=== PATIENT | male | born 1945 | race Two or more races ===

== ENCOUNTER 2025-08-25 17:51 | Inpatient (IN) | payer MEDICARE, OTHER ==
[~2025-08-25] VITALS: Ht 175.3 cm; Wt 88.5 kg
[2025-08-25 18:30] VITALS: BP 101/61; TEMP 99.3; O2SAT 100
[2025-08-25] MEDS ORDERED: MAGNESIUM HYDROXIDE 30 ML UDC PO PRN (19:00)
[2025-08-25] MEDS ORDERED: ONDANSETRON HCL/PF 4 MG/2 ML VIAL IVP PRN (19:00)
[2025-08-25] MEDS ORDERED: ZOLPIDEM TARTRATE 5 MG TABLET PO PRN (19:00)
[2025-08-25] MEDS ORDERED: Z GUARD REMEDY 4 OZ OINT TP PRN (19:00)
[2025-08-25] MEDS ORDERED: MAG HYDROX/AL HYDROX/SIMETH 30 ML UDC PO PRN (19:00)
[2025-08-25 19:11] LABS: PLATELET COUNT (AUTO) 263 K/uL (150-450); RED BLOOD CELL COUNT(AUTO) 2.40 MIL/uL (4.5-6.0); RED CELL DISTRIBUTION WIDTH 15.0 % (11.5-15.0); WHITE BLOOD COUNT (AUTO) 9.0 K/uL (4.3-11.0)
[2025-08-25 19:32] LABS: ASPARTATE AMINOTRANSFERASE 17 U/L (15-37); CALCIUM, SERUM 7.5 mg/dL (8.5-10.1); CREATININE 1.2 mg/dL (0.6-1.3); SODIUM SERUM 142 mmol/L (136-145); TOTAL PROTEIN, SERUM 5.6 g/dL (6.4-8.2); UREA NITROGEN, BLOOD 15 mg/dL (7-18)
[2025-08-25 19:35] LABS: LACTIC ACID 2.6 mmol/L (0.4-2.0)
[2025-08-25] MEDS: IV 1/2NS 1000 ML 1,000 ML IV PRN (22:23)
[2025-08-25 23:11] LABS: LACTIC ACID REFLEX 2.0 mmol/L (0.4-1.9)
[2025-08-26] VITALS (13 sets, daily range): BP systolic 59–130; BP diastolic 52–81; TEMP 98–98.9; O2SAT 99–100
[2025-08-26] MEDS: ACETAMINOPHEN 325 MG TABLET PO PRN (00:35)
[2025-08-26 07:19] LABS: PLATELET COUNT (AUTO) 238 K/uL (150-450); RED BLOOD CELL COUNT(AUTO) 2.08 MIL/uL (4.5-6.0); RED CELL DISTRIBUTION WIDTH 15.2 % (11.5-15.0); WHITE BLOOD COUNT (AUTO) 8.4 K/uL (4.3-11.0)
[2025-08-26 07:25] LABS: CALCIUM, SERUM 6.7 mg/dL (8.5-10.1); CREATININE 1.1 mg/dL (0.6-1.3); PHOSPHORUS 2.2 mg/dL (2.5-4.9); SODIUM SERUM 145.0 mmol/L (136-145); UREA NITROGEN, BLOOD 13.0 mg/dL (7-18)
[2025-08-26] MEDS: POTASSIUM CHLORIDE 20 MEQ TAB.PRT.SR PO SCH (08:29)
[2025-08-26] MEDS: NEUTRA PHOS 1 POWD.PACKET PO SCH (08:29)
[2025-08-26 08:41] LABS: IRON, SERUM 28 ug/dl (50-175)
[2025-08-26 08:50] LABS: LDL 71 mg/dL (0-99)
[2025-08-26] MEDS ORDERED: ZOLP10TA2 PO (08:59)
[2025-08-26 11:20] LABS: EOSINOPHILS % (MANUAL) 1 % (0-4); LYMPHOCYTES % (MANUAL) 14 % (16-48); MONOCYTES % (MANUAL) 8 % (0-11.0); NEUTROPHILS % (MANUAL) 77 (42-76); PLATELET ESTIMATE ADEQUATE
[2025-08-26 14:18] LABS: FREE PSA 0.12 ng/mL (0.00-45); PROSTATE SPECIFIC ANTIGEN SCR 0.36 ng/mL (0.00-4.00)
[2025-08-26] MEDS ORDERED: IOHEXOL-300 100 ML VIAL IV ONE (16:17)
[2025-08-26] MEDS ORDERED: IV NS 0.9% 250 ML IV ONE (16:18)
[2025-08-26] MEDS ORDERED: CT SWABBABLE VALVE TRANS SET 1 EA INFUS.SET MC ONE (16:21)
[2025-08-26 19:36] LABS: PLATELET COUNT (AUTO) 232 K/uL (150-450); RED BLOOD CELL COUNT(AUTO) 2.44 MIL/uL (4.5-6.0); RED CELL DISTRIBUTION WIDTH 14.9 % (11.5-15.0); WHITE BLOOD COUNT (AUTO) 13.3 K/uL (4.3-11.0)
[2025-08-26 20:39] LABS: LYMPHOCYTES % (MANUAL) 9 % (16-48); MONOCYTES % (MANUAL) 4 % (0-11.0); NEUTROPHILS % (MANUAL) 87 (42-76); PLATELET ESTIMATE ADEQUATE
[2025-08-27] VITALS: BP 115/63; TEMP 98; O2SAT 98
[2025-08-27 01:14] VITALS: O2SAT 97
[2025-08-27 01:29] VITALS: O2SAT 99
[2025-08-27] MEDS: IPRATROPIUM NEB FS 0.5 MG/2.5 ML AMPUL.NEB NEB ONE (01:39)
[2025-08-27] MEDS: ALBUTEROL FS 2.5 MG/0.5 ML VIAL.NEB NEB ONE (01:39)
[2025-08-27 04:00] VITALS: BP 113/60; TEMP 98; O2SAT 96
[2025-08-27 08:00] VITALS: BP 133/72; TEMP 98.3; O2SAT 98
[2025-08-27] MEDS ORDERED: SOD FERRIC GLUC 125 MG in IV NS 0.9% 100 ML IV SCH (14:00)
== END 2025-08-27 10:17 | disposition left against medical advice (07) | DRG 699 ==
LOC: TELE-TD 17:51 → TELE1 21:02
PROVIDERS: ADMIT Student in an Organized Health Care Education/Training Program; ATTEND Student in an Organized Health Care Education/Training Program
PROC: 30233N1 Transfusion of Nonautologous Red Blood Cells into Peripheral Vein, Percutaneous Approach (ICD-10-PCS; principal; 2025-08-26)
DX: S37.22XA Contusion of bladder, initial encounter (principal); C18.9 Malignant neoplasm of colon, unspecified; E87.20 Acidosis, unspecified; I24.89 Other forms of acute ischemic heart disease; J90 Pleural effusion, not elsewhere classified; E83.39 Other disorders of phosphorus metabolism; D64.9 Anemia, unspecified; I70.90 Unspecified atherosclerosis; N40.1 Benign prostatic hyperplasia with lower urinary tract symptoms; I48.91 Unspecified atrial fibrillation; I25.10 Atherosclerotic heart disease of native coronary artery without angina pectoris; Z92.21 Personal history of antineoplastic chemotherapy; Z93.3 Colostomy status; Z85.038 Personal history of other malignant neoplasm of large intestine; Z91.199 Patient's noncompliance with other medical treatment and regimen due to unspecified reason; Z87.891 Personal history of nicotine dependence; Z90.49 Acquired absence of other specified parts of digestive tract; I25.2 Old myocardial infarction; E87.6 Hypokalemia; Z53.29 Procedure and treatment not carried out because of patient's decision for other reasons; R31.9 Hematuria, unspecified; K83.8 Other specified diseases of biliary tract; X58.XXXA Exposure to other specified factors, initial encounter; Y92.9 Unspecified place or not applicable
CPT/HCPCS: 36415; 71045-TC; 74178; 80048-TC; 80053-TC; 80061-TC; 82248-TC; 82728-TC; 83540-TC; 83605-TC; 83735-TC; 84100-TC; 84153-TC; 84154-TC; 84439-TC; 84443-TC; 84484-TC; 85025-TC; 85027-TC; 86850-TC; 93307-TC; 94761-TC; A4217; A4223; G0378; J2916; J3490; J7030; J7050; P9016; Q9967